=== PATIENT | female | born 1955 | race Caucasian/White ===

== ENCOUNTER 2016-09-11 14:53 | Observation (INO) | payer BC ==
[2016-09-11] MEDS ORDERED: CELEBREX200 M1 PO (14:55)
[2016-09-11] MEDS ORDERED: WELLBUTRIN XL150 M1 PO (14:56)
[2016-09-11] MEDS ORDERED: SYNTHROID50 MC1 PO (14:56)
[2016-09-11] MEDS ORDERED: ADVAIR 50028 BLISTE1 PO (15:06)
[2016-09-11 15:24] LABS: BASO % 0.1 % (0-2); EOS % 1.9 % (0-7); EOSINOPHIL ABSOLUTE COUNT 0.1 tho/cmm (0.0-0.7); HCT-HEMATOCRIT 41.3 % (34.0-49.0); HGB-HEMOGLOBIN 14.3 gm/dl (12.0-15.5); IMMATURE GRANULOCYTES ABSOLUTE 0.03 tho/cmm (0-0.03); IMMATURE GRANULOCYTES PERCENT 0.4 % (0-0.3); LYMPH % 31.3 % (20-45); LYMPH ABSOLUTE COUNT 2.4 tho/cmm (0.8-4.5); MCH (MEAN CORPUSCULAR HGB) 32.8 pg (28.0-32.0); MCHC MEAN CORPUSCULAR HGB CONC 34.6 % (32.0-36.0); MCV (MEAN CELL VOLUME) 94.7 fl (82.0-96.0); MONO % 8.3 % (0-12); MONOCYTE ABSOLUTE COUNT 0.6 tho/cmm (0.0-1.2); NEUTROPHIL ABSOLUTE COUNT 4.4 tho/cmm (1.6-8.0); NEUTROPHIL-AUTOMATED 4.4 tho/cmm (1.6-8.0); PLATELET COUNT 247 tho/cmm (150-450); RED BLOOD COUNT 4.36 mil/cmm (4.00-5.20); WHITE BLOOD COUNT 7.5 tho/cmm (4.0-10.0)
[2016-09-11 15:40] LABS: ANION GAP 14 mmol/L (0-20); BLOOD UREA NITROGEN 23 mg/dl (6-24); CALCIUM 8.9 mg/dl (8.5-10.5); CARBON DIOXIDE-VENOUS 27 mmol/L (22-32); CHLORIDE 104 mmol/l (96-110); CREATININE 0.93 mg/dl (0.50-1.10); GLUCOSE 96 mg/dL (70-110); SODIUM 139 mmol/L (135-145); eGFR VALUE FOR BLACK 76 mL/Min
[2016-09-11 15:44] LABS: POTASSIUM 5.5 mmol/L (3.7-5.1)
[2016-09-11] MEDS ORDERED: VITAMIN D31000 UNI3 PO (18:56)
[2016-09-11 19:42] LABS: POTASSIUM 3.8 mmol/L (3.7-5.1)
[2016-09-12] MEDS ORDERED: OMEPRAZOLE20 M3 PO (14:07)
== END 2016-09-12 14:45 ==
LOC: EDMED 14:53 → EMR2 17:27 → CAR1 18:47
PROVIDERS: Physician Assistant; ADMIT Internal Medicine Cardiovascular Disease
DX: R07.9 Chest pain, unspecified (principal); R79.1 Abnormal coagulation profile; F41.9 Anxiety disorder, unspecified; Z79.1 Long term (current) use of non-steroidal anti-inflammatories (NSAID); Z79.899 Other long term (current) drug therapy; Z88.1 Allergy status to other antibiotic agents; Z88.5 Allergy status to narcotic agent; Z86.711 Personal history of pulmonary embolism; Z82.49 Family history of ischemic heart disease and other diseases of the circulatory system; Z82.3 Family history of stroke; Z83.3 Family history of diabetes mellitus; Z90.89 Acquired absence of other organs; Z98.890 Other specified postprocedural states
CPT/HCPCS: A9500; G0378; Q9967